=== PATIENT | female | born 1960 | race Caucasian/White ===

== ENCOUNTER → 2016-08-21 | Outpatient (CLI) | payer MEDICAID ==
[2016-08-21 10:13] LABS: Aty Lym Flag Marked; CH 31.4; CHCM 35.5; HCT 37.3 % (34.0-46.0); HDW 2.72; HGB 13.1 gm/dL (11.4-16.0); MCH 31.3 pg (25.0-35.0); MCHC 35.2 g/dL (31.0-37.0); MCV 88.9 fL (80.0-100.0); Mean Platelet Volume 6.7; RDW 12.4 % (11.5-15.5); WBC 4.7 k/uL (3.8-10.6); WBC (Perox) 14.37
[2016-08-21 10:33] LABS: ALT 45 U/L (9-52); AST 25 U/L (14-36); Alkaline Phosphatase 84 U/L (38-126); Anion Gap 8 mmol/L; Blood Urea Nitrogen 15 mg/dL (7-17); Carbon Dioxide 27 mmol/L (22-30); Chloride 108 mmol/L (98-107); Cholesterol 250 mg/dL (<200); Creatine Kinase 63 U/L (30-135); Glucose 103 mg/dL (74-99); HDL Cholesterol 55 mg/dL (40-60); Non-African American GFR(MDRD) >60 (>60 ml/min/1.73 sqM); Potassium 5.2 mmol/L (3.5-5.1); Sodium 143 mmol/L (137-145); Total Bilirubin 0.6 mg/dL (0.2-1.3); Total Protein 7.6 g/dL (6.3-8.2); Triglycerides 196 mg/dL (<150)
[2016-08-21 10:44] LABS: Add Differential Manual Differential
[2016-08-21 10:45] LABS: Nucleated Red Blood Cells 0 /100 WBC (0-0); Polychromasia Present; Total Cells Counted 100
== END | disposition home or self-care (01) ==
LOC: LABWHC1 08:26
PROVIDERS: ATTEND Internal Medicine Cardiovascular Disease
DX: E03.9 Hypothyroidism, unspecified (principal); E78.2 Mixed hyperlipidemia; I10 Essential (primary) hypertension; I25.10 Atherosclerotic heart disease of native coronary artery without angina pectoris
CPT/HCPCS: 36415; 80053; 80061; 82550; 84439; 84443; 85025

== ENCOUNTER → 2017-01-11 | Outpatient (CLI) | payer MEDICAID, BC ==
[2017-01-11 10:05] LABS: Basophils % (A) 1 %; CH 30.1; CHCM 33.4; Eosinophils # (A) 0.1 k/uL (0-0.7); Eosinophils % (A) 3 %; HCT 38.3 % (34.0-46.0); HDW 2.44; HGB 12.6 gm/dL (11.4-16.0); Luc # (Auto) 0.14; Luc % (Auto) 3; Lymphocytes # (A) 1.9 k/uL (1.0-4.8); Lymphocytes % (A) 43 %; MCH 29.9 pg (25.0-35.0); MCV 90.6 fL (80.0-100.0); Mean Platelet Volume 7.1; Monocytes # (A) 0.3 k/uL (0-1.0); Monocytes % (A) 8 %; Neutrophils # (A) 1.8 k/uL (1.3-7.7); Neutrophils % (A) 42 %; RBC 4.23 m/uL (3.80-5.40); RDW 13.5 % (11.5-15.5); WBC 4.4 k/uL (3.8-10.6); WBC (Perox) 4.39
[2017-01-11 11:35] LABS: ALT 50 U/L (9-52); AST 31 U/L (14-36); Alkaline Phosphatase 93 U/L (38-126); Anion Gap 8 mmol/L; Blood Urea Nitrogen 16 mg/dL (7-17); Calcium 9.7 mg/dL (8.4-10.2); Carbon Dioxide 24 mmol/L (22-30); Chloride 106 mmol/L (98-107); Cholesterol 192 mg/dL (<200); Glucose 100 mg/dL (74-99); HDL Cholesterol 47 mg/dL (40-60); Non-African American GFR(MDRD) >60 (>60 ml/min/1.73 sqM); Sodium 138 mmol/L (137-145); Total Bilirubin 0.8 mg/dL (0.2-1.3); Total Protein 7.3 g/dL (6.3-8.2)
== END | disposition home or self-care (01) ==
LOC: LABWHC1 09:06
PROVIDERS: ATTEND Internal Medicine
DX: E55.9 Vitamin D deficiency, unspecified (principal); I10 Essential (primary) hypertension; E03.9 Hypothyroidism, unspecified; E78.2 Mixed hyperlipidemia
CPT/HCPCS: 36415; 80053; 80061; 82306; 84443; 85025

== ENCOUNTER → 2017-07-29 | Outpatient (CLI) | payer BC ==
[2017-07-29 09:13] LABS: HCT 37.1 % (34.0-46.0); MCV 88.7 fL (80.0-100.0); Mean Platelet Volume 6.8; Platelet Count 199 k/uL (150-450); RBC 4.18 m/uL (3.80-5.40); RDW 12.5 % (11.5-15.5); WBC 4.3 k/uL (3.8-10.6)
[2017-07-29 09:30] LABS: ALT 47 U/L (9-52); AST 29 U/L (14-36); Albumin 4.5 g/dL (3.5-5.0); Alkaline Phosphatase 79 U/L (38-126); Anion Gap 11 mmol/L; Blood Urea Nitrogen 18 mg/dL (7-17); Calcium 9.9 mg/dL (8.4-10.2); Carbon Dioxide 26 mmol/L (22-30); Chloride 105 mmol/L (98-107); Cholesterol 210 mg/dL (<200); Glucose 104 mg/dL (74-99); HDL Cholesterol 53 mg/dL (40-60); LDL Cholesterol,Calculated 131 mg/dL (0-99); Sodium 142 mmol/L (137-145); Total Bilirubin 0.7 mg/dL (0.2-1.3); Total Protein 7.3 g/dL (6.3-8.2); Triglycerides 131 mg/dL (<150)
[2017-07-29 19:24] LABS: Hemoglobin A1C 5.6 % (4.0-6.0)
== END ==
LOC: LABWHC1 08:25
PROVIDERS: ATTEND Internal Medicine
DX: R73.09 Other abnormal glucose (principal); E55.9 Vitamin D deficiency, unspecified; E03.9 Hypothyroidism, unspecified; I10 Essential (primary) hypertension
CPT/HCPCS: 36415; 80053; 80061; 82306; 83036; 84443; 85027

== ENCOUNTER 2019-12-25 07:49 | Day surgery (SDC) | payer BC, OTHER ==
[2019-12-20 13:19] VITALS: BMI 31.6
[~2019-12-25 07:49] MED LIST: LACTATED RINGERS 1,000 ML IV SCH; LIDOCAINE 1% (10MG/ML) FOR IV START INTRADERMA PRN; MIDAZOLAM 2 MG/2 ML VIAL IV PRN
[2019-12-25 08:12] VITALS: RESP 16; TEMP 98.9
[2019-12-25] MEDS ORDERED: PROPOFOL 10 MG/ML 20 ML VIAL IV ONE (08:33)
[2019-12-25] MEDS ORDERED: LIDOCAINE 1% INJ 10MG/ML (20 ML MDV) ONE (08:33)
[2019-12-25] MEDS ORDERED: fentaNYL (PF) 50 MCG/ML 2 ML AMP ONE (08:33)
[2019-12-25] MEDS ORDERED: MIDAZOLAM 2 MG/2 ML VIAL ONE (08:33)
[2019-12-25] MEDS ORDERED: ONDANSETRON 4 MG/2 ML VIAL ONE (08:33)
--- NOTE | 2019-12-25 08:36 | P.GSHP ---
History of Present Illness H&P Date: 12/25/19 Chief Complaint: Colon cancer screening Patient here today for colonoscopy. She has not had 1 previously. No bowel related complaints. No family history of colon cancer. Past Medical History Past Medical History: Coronary Artery Disease (CAD), Hyperlipidemia, Hypertension, Thyroid Disorder Additional Past Medical History / Comment(s): pneumothorax post op shoulder sx, had chest tube History of Any Multi-Drug Resistant Organisms: None Reported Past Surgical History: Orthopedic Surgery, Tubal Ligation Additional Past Surgical History / Comment(s): bilateral shoulder manipulation, and left shoulder surgery, and left knee Past Anesthesia/Blood Transfusion Reactions: Postoperative Nausea & Vomiting (PONV) Additional Past Anesthesia/Blood Transfusion Reaction / Comment(s): [place] and sweaty with anesthesia Smoking Status: Former smoker Medications and Allergies Home Medications Medication Instructions Recorded Confirmed Type Aspirin EC [Ecotrin Low Dose] 81 mg PO DAILY #90 tablet. 10/10/13 12/20/19 Rx Atorvastatin [Lipitor] 80 mg PO DAILY 12/20/19 12/20/19 History Levothyroxine Sodium 112 mcg PO DAILY 12/20/19 12/20/19 History lisinopriL [Zestril] 5 mg PO DIRECTED PRN 12/20/19 12/20/19 History Allergies Allergy/AdvReac Type Severity Reaction Status Date / Time acetaminophen Allergy Swelling Verified 12/20/19 13:10 [From Darvocet-N 100] amoxicillin [From Augmentin] Allergy mouth/tongue Verified 12/20/19 13:10 white rash clavulanic acid Allergy mouth/tongue Verified 12/20/19 13:10 [From Augmentin] white rash propoxyphene napsylate Allergy Swelling Verified 12/20/19 13:10 [From Darvocet-N 100] Surgical - Exam Vital Signs Temp Pulse Resp BP Pulse Ox 98.9 F 68 16 164/77 97 12/25/19 08:09 12/25/19 08:09 12/25/19 08:09 12/25/19 08:09 12/25/19 08:09 Physical exam: General: Well-developed, well-nourished HEENT: Normocephalic, sclerae nonicteric Abdomen: Nontender, nondistended Extremities: No edema Neuro: Alert and oriented Assessment and Plan (1) Colon cancer screening Narrative/Plan: Will proceed with colonoscopy at this time Current Visit: Yes Status: Acute Code(s): Z12.11 - ENCOUNTER FOR SCREENING FOR MALIGNANT NEOPLASM OF COLON SNOMED Code(s): 834936579
--- NOTE | 2019-12-25 09:11 | P.PCN ---
Date of Procedure: 12/25/19 Procedure(s) Performed: PREOPERATIVE DIAGNOSIS: Colon cancer screening POSTOPERATIVE DIAGNOSIS: Descending colon polyp 2, transverse colon polyp 3, diverticulosis PROCEDURE: Colonoscopy With snare polypectomy ANESTHESIA: MAC SURGEON: Jack Castaneda M.D. SPECIMENS: Polyps ENDOSCOPIC PROCEDURE: The patient was placed on the endoscopy table in the left decubitus position. The Olympus colonoscope was inserted into the anus and passed under direct visualization to the base of the cecum. The appendiceal orifice was visualized. From that point the scope was slowly withdrawn inspecting all surfaces carefully. There were no neoplastic inflammatory or polypoid lesions throughout the cecum. In the ascending colon there was a small polyp proximally that was removed using the snare with cautery technique and closer to the hepatic flexure there was a larger polyp measuring about 1.5-2 cm in size along a fold that was removed in a piecemeal fashion using the snare with cautery technique. In the transverse colon there were 3 small polyps removed using the snare technique. The remainder of the transverse descending sigmoid and rectum are free of any neoplastic inflammatory or polypoid lesions. The patient had extensive diverticulosis involving the left colon. Digital rectal examination was normal. The patient was taken to the recovery room in stable condition per anesthesia guidelines. RECOMMENDATIONS: Await biopsy results. Recommend follow-up colonoscopy one year to confirm complete excision of the distal ascending colon polyp.
[2019-12-25 09:25] VITALS: BP 141/83; PULSE 61
== END 2019-12-25 09:45 | disposition home or self-care (01) ==
LOC: ORWHC2ENDO 07:49
PROVIDERS: ATTEND Surgery
DX: Z12.11 Encounter for screening for malignant neoplasm of colon (principal); K63.5 Polyp of colon; K57.30 Diverticulosis of large intestine without perforation or abscess without bleeding; I25.10 Atherosclerotic heart disease of native coronary artery without angina pectoris; I10 Essential (primary) hypertension; E78.5 Hyperlipidemia, unspecified; E07.9 Disorder of thyroid, unspecified; Z98.890 Other specified postprocedural states; Z98.51 Tubal ligation status; Z87.891 Personal history of nicotine dependence; Z79.82 Long term (current) use of aspirin; Z79.890 Hormone replacement therapy; Z79.899 Other long term (current) drug therapy; Z88.6 Allergy status to analgesic agent; Z88.5 Allergy status to narcotic agent; Z88.0 Allergy status to penicillin
CPT/HCPCS: 88305; 45385; J2250; J2405; J2001; J3010; J2704

== ENCOUNTER → 2020-12-12 | Outpatient (CLI) | payer OTHER ==
[2020-12-12 13:40] LABS: HCT 34.9 % (34.0-46.0); HGB 12.7 gm/dL (11.4-16.0); MCHC 36.5 g/dL (31.0-37.0); MCV 87.9 fL (80.0-100.0); Mean Platelet Volume 7.5; Platelet Count 251 k/uL (150-450); RBC 3.97 m/uL (3.80-5.40); RDW 12.5 % (11.5-15.5); WBC 7.3 k/uL (3.8-10.6)
[2020-12-12 13:54] LABS: Potassium 4.5 mmol/L (3.5-5.1)
== END | disposition home or self-care (01) ==
LOC: LABPAT 12:37
PROVIDERS: ATTEND Internal Medicine Interventional Cardiology
DX: Z01.812 Encounter for preprocedural laboratory examination (principal); I25.10 Atherosclerotic heart disease of native coronary artery without angina pectoris
CPT/HCPCS: 36415; 80051; 82565; 84520; 85027

== ENCOUNTER 2020-12-18 06:35 | Day surgery (SDC) | payer OTHER ==
[~2020-12-18 06:35] MED LIST changes: +ALPRAZolam 0.25 MG TAB PO PRN; +ALPRAZolam 0.5 MG TAB PO PRN; +ASPIRIN 325 MG TAB PO STA; +ATORVASTATIN 80 MG TAB PO STA; -LACTATED RINGERS 1,000 ML IV SCH; -LIDOCAINE 1% (10MG/ML) FOR IV START INTRADERMA PRN; -MIDAZOLAM 2 MG/2 ML VIAL IV PRN; +NITROGLYCERIN SL TABS 0.4 MG TAB SUBLINGUAL PRN; +SODIUM CHLORIDE 0.9% 1,000 ML in EMPTY BAG 1 BAG IV SCH
[2020-12-18] MEDS ORDERED: SODIUM CHLORIDE 0.9% 1,000 ML IV ONE (07:01)
[2020-12-18 07:13] VITALS: TEMP 99.1
[2020-12-18] MEDS ORDERED: VERAPAMIL 2.5 MG/ML 2 ML AMP ONE (07:19)
[2020-12-18] MEDS ORDERED: LIDOCAINE 1% INJ 10MG/ML (20 ML MDV) ONE (07:19)
[2020-12-18] MEDS ORDERED: MIDAZOLAM 2 MG/2 ML VIAL IV ONE (07:45)
[2020-12-18] MEDS ORDERED: LIDOCAINE 1% INJ 10MG/ML (20 ML MDV) SQ ONE (07:48)
[2020-12-18] MEDS: VERAPAMIL SYRINGE (5 MG/10 ML) INTRAARTER ONE ×2 (07:51→08:04)
[2020-12-18] MEDS ORDERED: HYDROmorphone 0.5 MG/0.5 ML SYRINGE IVP ONE (07:52)
[2020-12-18] MEDS ORDERED: HEPARIN SODIUM 1,000 UN/ML (10ML VL) IV ONE (07:52)
[2020-12-18] MEDS ORDERED: HEPARIN SODIUM 1,000 UN/ML (10ML VL) ONE (07:52)
[2020-12-18] MEDS ORDERED: IOPAMIDOL-370 125ML BTL INJ ONE (08:00)
[2020-12-18] MEDS ORDERED: RX INFO: IV CONTRAST WAS GIVEN 1 EACH MISC MISCELLANE PRN (08:09)
[2020-12-18] MEDS ORDERED: SODIUM CHLORIDE 0.9% 1,000 ML IV SCH (08:15)
--- NOTE | 2020-12-18 08:48 | CC ---
CARDIAC CATHETERIZATION REPORT DATE OF SERVICE: 12/18/2020 PERFORMING PHYSICIAN: Ash Duenas MD. PROCEDURE PERFORMED: 1. Selective right and left coronary angiogram. 2. Left heart catheterization. INDICATION: This is a 60-year-old female patient with coronary artery disease and prior stenting of the LAD and RCA who was experiencing symptoms of chest discomfort and she underwent a stress test that came into be abnormal and because of that, a heart catheterization was advised. APPROACH: Right radial artery. COMPLICATION: None. LEVEL OF SEDATION: Moderate with sedation length of 20 minutes. PROCEDURE DESCRIPTION: After obtaining informed consent, the patient was brought to the cardiac blood bank laboratory technician. The right radial artery was cannulated using micropuncture technique and a micropuncture wire passed easily. Then I placed a 6-[place] sheath in the right radial artery. 2 mg of verapamil IA and 6000 units of heparin IV given. Selective right and left coronary angiogram performed with JR4 and JL3.5 catheters. Left heart catheterization was performed using 5-[place] pigtail catheter. SELECTIVE CORONARY ANGIOGRAM: 1. RCA is a large caliber vessel and is a dominant vessel. The RCA appeared to be stented in the proximal portion and the stent is patent. Otherwise, the RCA has mild luminal irregularities only. 2. The left main is angiographically normal. It bifurcates into left circumflex and left anterior descending artery. 3. The left circumflex is a large caliber vessel. It is a codominant vessel. The left circumflex is angiographically normal. It gives rise into the first and second and third obtuse marginal branches both appeared to be angiographically normal and the circumflex distally bifurcates into PDA and PLV branches. Both appeared to be angiographically normal. 4. The LAD is a large caliber vessel. The proximal LAD is angiographically normal. It gives rise into a large diagonal branch which seems to be angiographically normal. The mid LAD is stented and the stent is patent and distal LAD has mild disease only. HEMODYNAMICS: The LVEDP was about 12-14 mmHg without significant gradient across the aortic valve. CONCLUSION: 1. Patent stent in the right coronary artery. 2. Patent stent in the mid left anterior descending artery. 3. Mild disease involving the left circumflex coronary arteries. 4. Mildly dilated left filling pressure. POSTPROCEDURE MANAGEMENT: Given the above anatomy, I advised maximized medical treatment and follow up with the patient. MMODL / IJN: [id number] /
[2020-12-18 12:51] VITALS: BP 135/63; PULSE 70; RESP 18
== END 2020-12-18 12:58 | disposition home or self-care (01) ==
LOC: CATHCVL 06:35
PROVIDERS: ATTEND Internal Medicine Interventional Cardiology
DX: I25.110 Atherosclerotic heart disease of native coronary artery with unstable angina pectoris (principal); I10 Essential (primary) hypertension; I49.5 Sick sinus syndrome; I47.2 Ventricular tachycardia; I47.1 Supraventricular tachycardia; E78.00 Pure hypercholesterolemia, unspecified; Z95.5 Presence of coronary angioplasty implant and graft; Z20.822 Contact with and (suspected) exposure to COVID-19; Z82.49 Family history of ischemic heart disease and other diseases of the circulatory system; E78.5 Hyperlipidemia, unspecified; Z79.82 Long term (current) use of aspirin; Z79.890 Hormone replacement therapy; Z79.899 Other long term (current) drug therapy; Z88.0 Allergy status to penicillin
CPT/HCPCS: 93458; 87635; C1894; J2250; J2001; J1644; J1170; Q9967

== ENCOUNTER → 2022-08-23 | Outpatient (CLI) | payer OTHER ==
[2022-08-23 15:04] LABS: Basophils # (A) 0.02 X 10*3/uL (0.00-0.10); Basophils % (A) 0.4 %; Eosinophils # (A) 0.16 X 10*3/uL (0.04-0.35); HCT 38.1 % (37.2-46.3); HGB 12.8 d/dL (12.0-15.0); Lymphocytes # (A) 2.34 X 10*3/uL (0.90-5.00); Lymphocytes % (A) 43.3 %; MCH 30.4 pg (27.0-32.0); MCHC 33.6 d/dL (32.0-37.0); MCV 90.5 FL (80.0-97.0); Mean Platelet Volume 10.8 FL (9.5-12.2); Monocytes # (A) 0.43 X 10*3/uL (0.20-1.00); Monocytes % (A) 7.9 %; NRBC Per 100 WBC 0 X 10*3/uL (0.00-0.01); Neutrophils # (A) 2.45 X 10*3/uL (1.80-7.70); Neutrophils % (A) 45.2 %; Platelet Count 248 X 10*3/uL (140-440); RBC 4.21 X 10*6/uL (4.10-5.20); WBC 5.41 X 10*3/uL (4.50-10.00)
[2022-08-23 16:07] LABS: ALT 47 U/L (8-44); AST 22 U/L (13-35); Albumin 4.5 d/dL (3.8-4.9); Albumin/Globulin Ratio 1.45 Ratio (1.60-3.17); Alkaline Phosphatase 116 U/L (41-126); BUN/Creat Ratio 16.12 Ratio (12.00-20.00); Blood Urea Nitrogen 12.9 mg/dL (9.0-27.0); Carbon Dioxide 25.7 mmol/L (21.6-31.8); Chloride 103 mmol/L (96-109); Chol/HDL Ratio 9.05 Ratio; Globulin 3.1 d/dL (1.6-3.3); Glucose 160 mg/dL (70-110); LDL Cholesterol,Calculated 242.5 mg/dL (0.0-131.0); Potassium 5.1 mmol/L (3.5-5.5); Sodium 141 mmol/L (135-145); Total Bilirubin 0.5 mg/dL (0.3-1.2); Total Protein 7.6 d/dL (6.2-8.2)
[2022-08-23 16:08] LABS: T4, Free (Free Thyroxine) 2.09 ng/dL (0.80-1.80)
[2022-08-23 18:31] LABS: Microalbumin Creatinine Ratio <22 mg/g Cr (0-30); Urine Creatinine 55.6 mg/dL (28.0-217.0)
== END | disposition home or self-care (01) ==
LOC: LABWHC1 09:51
PROVIDERS: ATTEND Student in an Organized Health Care Education/Training Program
DX: E11.9 Type 2 diabetes mellitus without complications (principal); E03.9 Hypothyroidism, unspecified; E78.5 Hyperlipidemia, unspecified; E55.9 Vitamin D deficiency, unspecified
CPT/HCPCS: 36415; 80053; 80061; 82043; 82306; 82570; 83036; 83721; 84439; 84443; 85025

== ENCOUNTER → 2022-12-20 | Outpatient (CLI) | payer OTHER ==
[2022-12-20 16:11] LABS: ALT 26 U/L (8-44); AST 18 U/L (13-35); Albumin 4.5 d/dL (3.8-4.9); Albumin/Globulin Ratio 1.55 Ratio (1.60-3.17); Alkaline Phosphatase 96 U/L (41-126); Blood Urea Nitrogen 11.6 mg/dL (9.0-27.0); Chloride 104 mmol/L (96-109); Chol/HDL Ratio 6.76 Ratio; Globulin 2.9 d/dL (1.6-3.3); Glucose 122 mg/dL (70-110); LDL Cholesterol,Calculated 184.8 mg/dL (0.0-131.0); Magnesium 2.1 mg/dL (1.5-2.4); Potassium 4.7 mmol/L (3.5-5.5); Sodium 140 mmol/L (135-145); Total Bilirubin 0.5 mg/dL (0.3-1.2); Total Protein 7.4 d/dL (6.2-8.2)
== END | disposition home or self-care (01) ==
LOC: LABWHC1 10:16
PROVIDERS: ATTEND Internal Medicine Clinical Cardiac Electrophysiology
DX: E11.9 Type 2 diabetes mellitus without complications (principal); I10 Essential (primary) hypertension; E78.5 Hyperlipidemia, unspecified
CPT/HCPCS: 36415; 80053; 80061; 83036; 83735

== ENCOUNTER → 2024-01-06 | Outpatient (CLI) | payer MEDICARE ==
[2024-01-06 15:06] LABS: Basophils # (A) 0.02 X 10*3/uL (0.00-0.10); Basophils % (A) 0.3 %; Eosinophils # (A) 0.24 X 10*3/uL (0.04-0.35); Eosinophils % (A) 3.7 %; HCT 36.5 % (37.2-46.3); HGB 12.5 g/dL (12.0-15.0); Lymphocytes # (A) 2.73 X 10*3/uL (0.90-5.00); Lymphocytes % (A) 41.6 %; MCH 30.4 pg (27.0-32.0); MCHC 34.2 g/dL (32.0-37.0); MCV 88.8 FL (80.0-97.0); Mean Platelet Volume 10.3 FL (9.5-12.2); Monocytes # (A) 0.55 X 10*3/uL (0.20-1.00); Monocytes % (A) 8.4 %; NRBC Per 100 WBC 0 X 10*3/uL (0.00-0.01); Neutrophils % (A) 45.7 %; Platelet Count 238 X 10*3/uL (140-440); RBC 4.11 X 10*6/uL (4.10-5.20); RDW 11.6 % (11.5-14.5); WBC 6.56 X 10*3/uL (4.50-10.00)
[2024-01-06 15:21] LABS: ALT 31 U/L (8-44); AST 19 U/L (13-35); Albumin 4.4 g/dL (3.8-4.9); Albumin/Globulin Ratio 1.52 Ratio (1.60-3.17); Alkaline Phosphatase 100 U/L (41-126); BUN/Creat Ratio 14.12 Ratio (12.00-20.00); Blood Urea Nitrogen 11.3 mg/dL (9.0-27.0); Calcium 9.5 mg/dL (8.7-10.3); Carbon Dioxide 25.4 mmol/L (21.6-31.8); Chloride 104 mmol/L (96-109); Chol/HDL Ratio 4.83 Ratio; Globulin 2.9 g/dL (1.6-3.3); Glucose 167 mg/dL (70-110); LDL Cholesterol,Calculated 142.5 mg/dL (0.0-131.0); Potassium 4.9 mmol/L (3.5-5.5); Sodium 140 mmol/L (135-145); Total Bilirubin 0.5 mg/dL (0.3-1.2); Total Protein 7.3 g/dL (6.2-8.2)
[2024-01-06 20:57] LABS: Microalbumin Creatinine Ratio <26 mg/g Cr (0-30); Urine Creatinine 45.5 mg/dL (28.0-217.0)
== END | disposition home or self-care (01) ==
LOC: LABWHC1 10:09
PROVIDERS: ATTEND Internal Medicine Clinical Cardiac Electrophysiology
CPT/HCPCS: 36415; 80053; 80061; 82043; 82570; 83036; 85025

== ENCOUNTER → 2024-07-18 | Outpatient (CLI) | payer MEDICARE ==
--- NOTE | 2024-07-19 07:43 | BD ---
EXAMINATION TYPE: Axial Bone Density DATE OF EXAM: 07/18/2024 CLINICAL HISTORY: 64 years old Female. ICD-10 CODE: N95.8 MENOPAUSAL AND PERIMENOPAUSAL DISORDER , A dditional History: Height: 65 Weight: 179.8 FRAX RISK QUESTIONS: Alcohol (3 or more units per day): no Family History (Parent hip fracture): yes Glucocorticoids (More than 3mos): no (Ex: prednisone, prednisolone, methylprednisolone, dexamethasone, and hydrocortisone). History of Fracture in Adulthood: yes Secondary Osteoporosis: 1. Type 1 Diabetes: no 2. Hyperthyroidism: no 3. Menopause before 45: no 4. Malnutrition: no 5. Chronic liver disease: no Rheumatoid Arthritis: yes Current Tobacco Use: no RISK FACTORS HISTORY OF: Surgery to Spine/Hip(right/left)/Wrist (right/left): no EXAM MEASUREMENTS: Bone mineral densitometry was performed using the [employer] System. Bone mineral density as measured about the Lumbar spine is: ----- L1-L4(G/cm2): 1.010-2.2 T Score Values are as follows: ----- L1: -1.5 ----- L2: -1.5 ----- L3: -0.7 ----- L4: -1.4 ----- L1-L4: -1.1 Z Score Values are as follows: ----- L1: -0.5 ----- L2: -0.5 ----- L3: -0.5 ----- L4: 0.3 ----- L1-L4: -0.4 Bone mineral density has: decreased-11.9 % since study of: 03.05.2009 Bone mineral density about the R hip (g/cm2): 0.906 Bone mineral density about the L hip (g/cm2): 0.912 T Score values are as follows: -----R Neck: -1.0 -----L Neck: -1.0 -----R Total: -0.8 -----L Total: -0.8 Z Score values are as follows: -----R Neck: 0.1 -----L Neck: 0.1 -----R Total: 0.0 -----L Total: 0.1 Bone mineral density has: decreased -12.3 % since study of: 03.05.2009 FRAX%s: The graph provided illustrates a 29.9% chance for a major osteoporotic fx and a 1.7% chance f or the hips probability for fx in 10 years time. IMPRESSION: Osteopenia (T Score between -2.5 and -1). There is slightly increased risk of fracture and the patient may be considered for treatment. Re-Screen 2-5 years. NOTE: T-SCORE=SD OF THE YOUNG ADULT MEAN. [facility], , 07/19/2024 7:41 AM
== END | disposition home or self-care (01) ==
LOC: RADBDWWP 14:27
PROVIDERS: ATTEND Student in an Organized Health Care Education/Training Program
DX: M85.89 Other specified disorders of bone density and structure, multiple sites (principal); N95.8 Other specified menopausal and perimenopausal disorders
CPT/HCPCS: 77080

== ENCOUNTER → 2024-07-18 | Outpatient (CLI) | payer MEDICARE ==
--- NOTE | 2024-07-18 15:26 | US ---
EXAMINATION TYPE: US carotid duplex BILAT DATE OF EXAM: 07/18/2024 COMPARISON: NONE CLINICAL INDICATION: Female, 64 years old with history of R09.89 CIRCULATORY AND RESPIRATORY SYMPTOMS ; Bruit. Prior smoker x 15 years, pt quit in 1998, diabetic, hx hypertension and hyperlipidemia. Additional History: .... TECHNIQUE: Grayscale, color Doppler and spectral Doppler evaluation of the bilateral carotid systems and vertebral arteries. Indirect Doppler criteria was utilized. FINDINGS: EXAM MEASUREMENTS: RIGHT: Peak Systolic Velocity (PSV) cm/sec ----- Right CCA: 65.8 ----- Right ICA: 143.1 ----- Right ECA: 194.2 ICA/CCA ratio: 2.2 RIGHT: End Diastole cm/sec ----- Right CCA: 20.8 ----- Right ICA: 39.7 ----- Right ECA: 17.7 LEFT: Peak Systolic Velocity (PSV) cm/sec ----- Left CCA: 104.5 ----- Left ICA: 99.7 ----- Left ECA: 152.3 ICA/CCA ratio: 1.0 LEFT: End Diastole cm/sec ----- Left CCA: 26.0 ----- Left ICA: 28.9 ----- Left ECA: 18.3 VERTEBRALS (direction of flow): Right Vertebral: Antegrade Left Vertebral: Antegrade Rhythm: Normal MANAGER TALENT NOTES: Elevated velocity right ICA and bilateral ECA. *Plaque seen within bilateral bu lbs. Color Doppler imaging shows patency with blood flow throughout the carotid artery. IMPRESSION: Right: Less than 50% stenosis of the carotid bifurcation. Left: No hemodynamically significant stenosis. Criteria for Assigning % of Stenosis / Diameter reduction (Estimation based on the indirect measurements of the internal carotid artery velocities (ICA PSV). 1. Normal (no stenosis)=ICA PSV < 180 cm/s: ratio < 2.0: ICA EDV<40 cm/s. 2. Less than 50% stenosis=ICA PSV < 180 cm/s: ratio < 2.0: ICA EDV<40 cm/s. 3. 50 to 69% stenosis=ICA PSV of 180 to 230 cm/s: ration 2.0 ? 4.0: ICA EDV 40-100 cm/s. PSV 125-180 cm/sec and ICA/CCA PSV Ratio ? 2.0 is also consistent with 50-69% stenosis 4. Greater than 70% stenosis to near occlusion= ICA PSV > 230 cm/s: ratio > 4.0: ICA EDV > 100 cm/s. 5. Near occlusion= ICA PSV velocities may be low or undetectable: variable ratio and ICA EDV. 6. Total occlusion=unable to detect flow. [facility], , 07/18/2024 3:24 PM
== END | disposition home or self-care (01) ==
LOC: RADUSWWP 14:25
DX: N95.8 Other specified menopausal and perimenopausal disorders (principal); R09.89 Other specified symptoms and signs involving the circulatory and respiratory systems; I65.21 Occlusion and stenosis of right carotid artery; I10 Essential (primary) hypertension; E78.5 Hyperlipidemia, unspecified; E11.9 Type 2 diabetes mellitus without complications; Z87.891 Personal history of nicotine dependence
CPT/HCPCS: 93880